=== PATIENT | female | born 1985 | race Caucasian/White ===

== ENCOUNTER 2019-07-18 17:42 | Emergency (ER) | payer BC, SELFPAY ==
--- NOTE | 2019-07-18 18:00 | ED.FEMALEGU ---
HPI - Female Genitourinary General Chief complaint: Urogenital-Female Stated complaint: UTI Time Seen by Provider: 07/18/19 18:01 Source: patient Mode of arrival: ambulatory Limitations: no limitations History of Present Illness HPI Narrative: Shavonne Shay is a 34 yo female with pressure and difficulty urinating starting at 11 A. Hx of uti Related Data Allergies Allergy/AdvReac Type Severity Reaction Status Date / Time Sulfa (Sulfonamide Allergy Hives Verified 07/18/19 18:02 Antibiotics) witch liborio Allergy Anaphylaxis Verified 07/18/19 18:02 Review of Systems Review of Systems: Narrative: CONSTITUTIONAL: Denies fever, chills, sweats. EYES: Denies visual changes, redness, discharge. ENT: Denies rhinorrhea, congestion, sore throat, otalgia. CARDIOVASCULAR: Denies chest pain, palpitations, edema. RESPIRATORY: Denies dyspnea, wheezing, cough GASTROINTESTINAL: Denies abdominal pain, nausea, vomiting, diarrhea. GENITOURINARY: has dysuria, hematuria, no abnormal discharge SKIN: Denies rash or itching. NEUROLOGIC: Denies numbness, or focal weakness. PSYCHIATRIC: Denies anxiety or depression. [facility] Social History Social History (Updated 07/18/19 @ 18:02 by Sandy Anderson CNP) Smoking status: Never smoker Alcohol intake: current Comments By at time of signature, I agree with nursing past medical, surgical, social and family history. There is no relevant family history pertinent to the presenting complaint. Exam Narrative: Exam Narrative: GENERAL: This is a well-nourished, well-developed patient, in mild distress. HEAD: normocephalic, atraumatic. EYES: Sclera clear/white. Vision is grossly intact. EARS: External ears normal, . Hearing grossly intact. NOSE: External nose normal with no obvious nasal discharge, nares without redness, no rhinorrhea. THROAT: Mucous membranes moist, NECK: Neck supple, CARDIOVASCULAR: Regular rate and rhythm without murmurs, gallops, or rubs. RESPIRATORY: Clear to auscultation. Breath sounds equal bilaterally. No wheezes, rales, or rhonchi. GASTROINTESTINAL: Abdomen soft, mildly-tender, SKIN: warm, intact with no suspicious lesions or rash, good texture and turgor. NEURO: awake, alert, and oriented to person, place and time. There were no obvious focal neurologic abnormalities. Steady gait EXTREMITIES: Normal range of motion. . Course Course Emergency Course: UA: Positive for leukocytes (3+), 3+ blood, tr ketones Started on Keflex and Diflucan Vital Signs Vital signs: Vital Signs Temperature 98.4 F 07/18/19 18:02 Pulse Rate 100 07/18/19 18:02 Respiratory Rate 20 07/18/19 18:02 Blood Pressure 122/75 07/18/19 18:02 Pulse Oximetry 100 07/18/19 18:02 Temperature 98.4 F 07/18/19 18:02 Pulse Rate 100 07/18/19 18:02 Respiratory Rate 20 07/18/19 18:02 Blood Pressure 122/75 07/18/19 18:02 Pulse Oximetry 100 07/18/19 18:02 MDM - Female Genitourinary Differential Diagnosis Differential diagnosis: Likely urinary tract infection, cystitis and other Lab Data Labs: Urine Glucose Negative Reference Range: Negative Urine Bilirubin 2+ Reference Range: Negative Urine Ketone Trace Reference Range: Negative Urine Specific [place] 1.020 Reference Range:1.001-1.035 Urine Blood 3+ Reference Range: Negative * * Urine pH 5.5 Reference Range: 5.0-9.0 Urine Protein 3+ Reference Range: Negative Urine Urobilinogen 1.0 Reference Range: 0.2-1.0 Urine Nitrate Negative Reference Range: Negative Urine Leukocyte 3+ Reference Range: Negative Urine Color Red Reference Range: Yellow Urine Characteristics
[2019-07-18 18:02] VITALS: BP 122/75; PULSE 100; RESP 20; TEMP 36.9; O2SAT 100
== END 2019-07-18 18:15 | disposition home or self-care (01) ==
PROVIDERS: Emergency Provider Nurse Practitioner
DX: N30.01 Acute cystitis with hematuria (principal)
CPT/HCPCS: 81003; 87077; 87086; 87088; 87186; 99213; G0463

== ENCOUNTER 2020-10-30 06:26 | Emergency (ER) | payer OTHER, BC, SELFPAY ==
[2020-10-30] VITALS (12 sets, daily range): BP systolic 106–136; BP diastolic 70–106; PULSE 71–104; RESP 12–21; TEMP 36.6; O2SAT 98–100
[2020-10-30 06:58] LABS: Basophils Percent Auto 0.3 % (0.2-1.2); Eosinophils Absolute Auto 0.1 K/mm3 (0-0.3); Eosinophils Percent Auto 0.8 % (0-4.4); Hematocrit 35.4 % (37.0-47.0); Hemoglobin 12.3 g/dL (12.0-15.0); Immature Granulocyte Absolute 0.07 K/mm3 (0.00-0.031); Immature Granulocyte Percent A 0.7 % (0-0.5); Lymphocytes Absolute Auto 1.86 K/mm3 (0.9-3.2); Lymphocytes Percent Auto 17.3 % (18.3-44.2); Mean Corpuscular HGB Conc 34.7 g/dl (32-36); Mean Corpuscular Hemoglobin 31.5 pg (26-34); Mean Corpuscular Volume 90.8 fl (80-100); Mean Platelet Volume 10.3 fl (7.4-10.4); Monocytes Percent Auto 8.8 % (2.6-8.5); Neutrophils Absolute Auto 7.8 K/mm3 (1.3-6.7); Neutrophils Percent Auto 72.1 % (45.5-73.1); Platelet Count Result 263 k/mm3 (150-375); Red Cell Distribution Width 11.7 % (11.5-14.5); White Blood Count 10.8 K/mm3 (4.5-10.0)
[2020-10-30 07:08] LABS: Alanine Aminotransferase 14 U/L (4-35); Albumin Level 3.4 g/dL (3.5-5.1); Alkaline Phosphatase 165 U/L (38-126); Anion Gap 6 mmol/L (8-16); Aspartate Amino Transferase 23 U/L (14-36); Bilirubin,Total 0.3 mg/dL (0.2-1.3); Blood Urea Nitrogen 12 mg/dL (7-17); Calcium 9.1 mg/dL (8.4-10.2); Carbon Dioxide 21 mmol/L (22-30); Chloride 109 mmol/L (98-107); Estimated CRCL calculation 103 ml/min; Estimated Glomerular Filt Rate > 60; Glucose 79 mg/dL (65-105); Lipase 156 U/L (23-300); Potassium 3.8 mmol/L (3.4-5.0); Sodium 136 mmol/L (137-145)
--- NOTE | 2020-10-30 07:47 | ED.NAVMDI ---
HPI - Nausea/Vomiting/Diarrhea General Chief complaint: Nausea/Vomiting/Diarrhea Stated complaint: 35weeks preg-N/V Time Seen by Provider: 10/30/20 07:45 Source: patient, family and RN notes reviewed Mode of arrival: ambulatory Limitations: no limitations History of Present Illness HPI Narrative: Patient is 35 years old white female 35 weeks presents with vomiting started 7 hours prior to arrival to the emergency room. Patient reports a history of bad hyperemesis gravidarum during all her which resolved almost 1 month ago, started 7 hours prior to arrival to the emergency room. Patient denies any fever, chills, abdominal pain, urinary symptoms, diarrhea. Patient is a 1, para 0, 0 Related Data Home Medications Medication Instructions Recorded Confirmed ondansetron HCl 10/30/20 Allergies Allergy/AdvReac Type Severity Reaction Status Date / Time Sulfa (Sulfonamide Allergy Hives Verified 10/30/20 06:41 Antibiotics) witch liborio Allergy Anaphylaxis Verified 10/30/20 06:41 Review of Systems Review of Systems: Narrative: CONSTITUTIONAL: Denies fever, chills, or sweats. EYES: Denies visual changes, redness, or discharge. ENT: Denies rhinorrhea, congestion, sore throat, or otalgia. CARDIOVASCULAR: Denies chest pain, palpitations, or edema. RESPIRATORY: Denies cough or dyspnea. GASTROINTESTINAL: Denies abdominal pain, nausea, vomiting, or diarrhea. GENITOURINARY: Denies dysuria or hematuria. SKIN: Denies rash or itching. MUSCULOSKELETAL: Denies back pain, joint pain, or myalgia. NEUROLOGIC: Denies headache, numbness, or weakness. PSYCHIATRIC: Denies anxiety or depression. [facility] Social History Social History Smoking status: Never smoker Alcohol intake: current Exam Narrative: Exam Narrative: General appearance: Well-developed, well-nourished Skin: Normal color Head: Normocephalic, nontraumatic Eyes: Clear conjunctiva ENT: Oropharynx normal, ears normal, nose normal Neck: Supple, nontender Chest and respiratory: Airway patent, no respiratory distress, no accessory muscle use Heart: Regular rate/rhythm Abdomen: Soft, nontender, no organomegaly, quiet bowel sounds Vascular: Normal peripheral pulses, normal capillary refill. Musculoskeletal: Normal range of motion, nontender back Neurologic: Alert and oriented ?3, [employer] is normal as tested, no gross motor deficit Course Course Emergency Course: Improving Vital Signs Vital signs: Vital Signs Temperature 36.6 C 10/30/20 06:36 Pulse Rate 91 10/30/20 06:36 Respiratory Rate 19 10/30/20 06:36 Blood Pressure 136/93 H 10/30/20 06:36 Pulse Oximetry 100 10/30/20 06:36 Temperature 36.6 C 10/30/20 06:36 Pulse Rate 86 10/30/20 07:45 Respiratory Rate 15 10/30/20 07:45 Blood Pressure 136/86 10/30/20 07:45 Pulse Oximetry 100 10/30/20 07:45 MDM - Nausea/Vomiting/Diarrhea MDM Narrative Medical decision making narrative: Hyperemesis gravidarum, urinary tract infection, electrolyte imbalance are my concern. Labs, UA, IV fluid, IV Zofran ordered. Further plan to follow Differential Diagnosis Differential diagnosis: Likely gastroenteritis, dehydration and other (Hyperemesis gravidarum) Lab Data Result diagrams: 10/30/20 06:51 10/30/20 06:51 Labs: Lab Results 10/30/20 10/30/20 10/30/20 Range/Units 06:51 06:51 08:57 WBC 10.8 H (4.5-10.0) K/mm3 RBC 3.90 L (4.2-5.4) M/mm3 Hgb 12.3 (12.0-15.0) g/dL Hct 35.4 L (37.0-47.0) % MCV 90.8 (80-100) fl MCH 31.5 (26-34) pg MCHC 34.7 (32-36) g/dl RDW 11.7 (11.5
[2020-10-30] MEDS: ONDANSETRON INJ 4 MG/2 ML VIAL 8 MG IV PUSH (07:52)
[2020-10-30] MEDS: SODIUM CHLORIDE 0.9% IV 1,000 ML 999 ML IV CONT ×2 (07:52)
[2020-10-30 09:12] LABS: Add Urine Microscopic? YES; Appearance Urine Cloudy (Clear); Bacteria Urine 4+ /hpf; Bilirubin Urine Negative (Negative); Blood Urine Negative (Negative); Color Urine Yellow (Yellow); Glucose Urine UA Negative (Negative); Ketones Urine Negative (Negative); Leukocyte Esterase Ur Negative LEU/UL (Negative); Mucus Urine Rare /lpf; Nitrate Urine Negative (Negative); Protein Urine Negative (Negative); RBC Urine 0-2 /hpf (0-2); Specific Grav Ur 1.012 (1.001-1.035); Squamous Epithelial Cell Urine Many /hpf (Few); Urobilinogen Urine Negative mg/dL (<2.0)
[2020-10-30] MEDS: ACETAMINOPHEN 325 MG TABLET 650 MG PO (11:10)
== END 2020-10-30 11:20 | disposition home or self-care (01) ==
PROVIDERS: Emergency Provider Emergency Medicine
DX: O21.0 Mild hyperemesis gravidarum (principal); Z3A.35 35 weeks gestation of pregnancy
CPT/HCPCS: 36415; 80053; 81001; 81025; 83690; 85025; 96361; 96374; 99284; A9270; J2405; J7030

== ENCOUNTER 2020-11-05 11:08 | Outpatient (CLI) | payer OTHER, BC, SELFPAY ==
[2020-11-05 11:31] VITALS: BP 144/90; PULSE 102
[2020-11-05 11:46] VITALS: BP 135/91; PULSE 104
[2020-11-05 11:48] VITALS: BP 144/90; PULSE 102
[2020-11-05 11:51] LABS: Basophils Percent Auto 0.4 % (0.2-1.2); Eosinophils Percent Auto 0.4 % (0-4.4); Hematocrit 35.5 % (37.0-47.0); Hemoglobin 12.1 g/dL (12.0-15.0); Immature Granulocyte Absolute 0.05 K/mm3 (0.00-0.031); Immature Granulocyte Percent A 0.4 % (0-0.5); Lymphocytes Absolute Auto 1.74 K/mm3 (0.9-3.2); Lymphocytes Percent Auto 15.5 % (18.3-44.2); Mean Corpuscular HGB Conc 34.1 g/dl (32-36); Mean Corpuscular Hemoglobin 31.3 pg (26-34); Mean Corpuscular Volume 91.7 fl (80-100); Mean Platelet Volume 10.2 fl (7.4-10.4); Monocytes Absolute Auto 1.1 K/mm3 (0.1-0.6); Monocytes Percent Auto 9.3 % (2.6-8.5); Neutrophils Absolute Auto 8.3 K/mm3 (1.3-6.7); Platelet Count Result 287 k/mm3 (150-375); Red Blood Count 3.87 M/mm3 (4.2-5.4); Red Cell Distribution Width 11.9 % (11.5-14.5); White Blood Count 11.3 K/mm3 (4.5-10.0)
[2020-11-05 11:58] LABS: Alanine Aminotransferase 16 U/L (4-35); Albumin Level 3.7 g/dL (3.5-5.1); Alkaline Phosphatase 196 U/L (38-126); Anion Gap 5 mmol/L (8-16); Aspartate Amino Transferase 26 U/L (14-36); Bilirubin,Total 0.3 mg/dL (0.2-1.3); Blood Urea Nitrogen 12 mg/dL (7-17); Calcium 9.3 mg/dL (8.4-10.2); Carbon Dioxide 21 mmol/L (22-30); Chloride 107 mmol/L (98-107); Estimated Glomerular Filt Rate > 60; Glucose 83 mg/dL (65-105); Sodium 133 mmol/L (137-145); Uric Acid 5.7 mg/dL (2.5-7.5)
[2020-11-05 11:59] LABS: Add Urine Microscopic? YES; Appearance Urine Cloudy (Clear); Bacteria Urine Trace /hpf; Bilirubin Urine Negative (Negative); Blood Urine Negative (Negative); Color Urine Yellow (Yellow); Glucose Urine UA Negative (Negative); Ketones Urine Negative (Negative); Leukocyte Esterase Ur Negative LEU/UL (NEGATIVE); Mucus Urine Rare /lpf; Nitrate Urine Negative (Negative); Protein Urine Negative (Negative); RBC Urine 0-2 /hpf (0-2); Specific Grav Ur 1.023 (1.001-1.035); Squamous Epithelial Cell Urine Occasional /hpf (Few); Urobilinogen Urine Negative mg/dL (<2.0); WBC Urine 0-3 /hpf (0-3)
[2020-11-05 12:00] VITALS: BP 131/89; BP 144/90; PULSE 102; PULSE 94
[2020-11-05 12:05] LABS: Creatinine Urine 124.6 mg/dL; Total Protein Urine Random 12 mg/dL
[2020-11-05 12:15] VITALS: BP 130/84; PULSE 99
--- NOTE | 2020-11-05 14:39 | PC.NURSE ---
1213- called,read lab results and bp's. Order received to discharge pt home.
--- NOTE | 2020-11-05 14:40 | PC.NURSE ---
1108-Pt was sent down from 's office for elevated bp's in office. [facility] labs and NST ordered.
== END 2020-11-05 12:15 | disposition home or self-care (01) ==
LOC: ANHOBOP 11:16 → ANHLDR 11-10 07:01
PROVIDERS: Visit Provider Obstetrics & Gynecology
DX: O13.9 Gestational [pregnancy-induced] hypertension without significant proteinuria, unspecified trimester (principal); Z3A.00 Weeks of gestation of pregnancy not specified
CPT/HCPCS: 36415; 59025; 80053; 81001; 82570; 84156; 84550; 85025; 87086; 87088; 99199

== ENCOUNTER 2020-11-07 20:59 | Outpatient (CLI) | payer BC, OTHER, SELFPAY ==
[2020-11-07] VITALS (7 sets, daily range): BP systolic 136–153; BP diastolic 88–101; PULSE 93–101; RESP 18; TEMP 36.7
[2020-11-07 22:13] LABS: Basophils Percent Auto 0.2 % (0.2-1.2); Eosinophils Percent Auto 0.3 % (0-4.4); Hematocrit 33.4 % (37.0-47.0); Hemoglobin 11.6 g/dL (12.0-15.0); Immature Granulocyte Absolute 0.08 K/mm3 (0.00-0.031); Immature Granulocyte Percent A 0.6 % (0-0.5); Lymphocytes Absolute Auto 2.59 K/mm3 (0.9-3.2); Lymphocytes Percent Auto 19.8 % (18.3-44.2); Mean Corpuscular HGB Conc 34.7 g/dl (32-36); Mean Corpuscular Hemoglobin 31.9 pg (26-34); Mean Corpuscular Volume 91.8 fl (80-100); Mean Platelet Volume 10.4 fl (7.4-10.4); Monocytes Absolute Auto 0.9 K/mm3 (0.1-0.6); Neutrophils Absolute Auto 9.4 K/mm3 (1.3-6.7); Neutrophils Percent Auto 72.1 % (45.5-73.1); Platelet Count Result 281 k/mm3 (150-375); Red Blood Count 3.64 M/mm3 (4.2-5.4); Red Cell Distribution Width 11.9 % (11.5-14.5); White Blood Count 13.1 K/mm3 (4.5-10.0)
[2020-11-07 22:15] LABS: Add Urine Microscopic? NO; Appearance Urine Clear (Clear); Bilirubin Urine Negative (Negative); Blood Urine Negative (Negative); Color Urine Yellow (Yellow); Glucose Urine UA Negative (Negative); Ketones Urine Negative (Negative); Leukocyte Esterase Ur Negative LEU/UL (NEGATIVE); Nitrate Urine Negative (Negative); Protein Urine Negative (Negative); Specific Grav Ur 1.019 (1.001-1.035); Urobilinogen Urine Negative mg/dL (<2.0)
[2020-11-07 22:23] LABS: Alanine Aminotransferase 14 U/L (4-35); Albumin Level 3.6 g/dL (3.5-5.1); Alkaline Phosphatase 201 U/L (38-126); Anion Gap 8 mmol/L (8-16); Aspartate Amino Transferase 22 U/L (14-36); Bilirubin,Total 0.2 mg/dL (0.2-1.3); Blood Urea Nitrogen 13 mg/dL (7-17); Calcium 9.5 mg/dL (8.4-10.2); Carbon Dioxide 22 mmol/L (22-30); Chloride 104 mmol/L (98-107); Estimated Glomerular Filt Rate > 60; Glucose 118 mg/dL (65-105); Potassium 3.5 mmol/L (3.4-5.0); Sodium 134 mmol/L (137-145); Uric Acid 5.6 mg/dL (2.5-7.5)
[2020-11-07 22:30] LABS: Creatinine Urine 97.5 mg/dL; Total Protein Urine Random 16 mg/dL; Ur Ttl Prot Creatinine Ratio 0.16 mg/mg (0-0.20)
--- NOTE | 2020-11-08 06:53 | PM.OBTRLD ---
OB - Triage/Final Diagnosis Visit Information Date of evaluation: 11/07/20 Reason for evaluation: other (htn) Comments/Additional reasons for admission: I have assessed the risk for this patient, Mandy Shay, and determined that she would benefit from observation care. Evaluation Laboratory results: Laboratory Tests 11/07/20 11/07/20 11/07/20 22:01 22:01 22:01 WBC 13.1 H RBC 3.64 L Hgb 11.6 L Hct 33.4 L MCV 91.8 MCH 31.9 MCHC 34.7 RDW 11.9 Plt Count 281 MPV 10.4 Immature Gran % (Auto) 0.6 H Neut % (Auto) 72.1 Lymph % (Auto) 19.8 [place] % (Auto) 7.0 Eos % (Auto) 0.3 Baso % (Auto) 0.2 Lymph # (Auto) 2.59 [place] # (Auto) 0.9 H Eos # (Auto) 0.0 Baso # (Auto) 0.0 Abs Immat Gran (auto) 0.08 H Absolute Neuts (auto) 9.4 H Absolute Nucleated RBC 0.0 Nucleated RBC % 0.0 Sodium Potassium Chloride Carbon Dioxide Anion Gap BUN Creatinine Estim Creat Clear Calc Estimated GFR Glucose Uric Acid Calcium Total Bilirubin AST ALT Alkaline Phosphatase Total Protein Albumin Urine Color Yellow Urine Appearance Clear Urine pH 6.0 Ur Specific [place] 1.019 Urine Protein Negative Urine Glucose (UA) Negative Urine Ketones Negative Ur Blood (Man) Negative Urine Nitrate Negative Urine Bilirubin Negative Urine Urobilinogen Negative Ur Leukocyte Esterase Negative U Random Total Protein 16 Urine Creatinine 97.5 Protein/Creat Ratio 2 0.16 11/07/20 22:01 WBC RBC Hgb Hct MCV MCH MCHC RDW Plt Count MPV Immature Gran % (Auto) Neut % (Auto) Lymph % (Auto) [place] % (Auto) Eos % (Auto) Baso % (Auto) Lymph # (Auto) [place] # (Auto) Eos # (Auto) Baso # (Auto) Abs Immat Gran (auto) Absolute Neuts (auto) Absolute Nucleated RBC Nucleated RBC % Sodium 134 L Potassium 3.5 Chloride 104 Carbon Dioxide 22 Anion Gap 8 BUN 13 Creatinine 0.70 Estim Creat Clear Calc Not Reportable Estimated GFR > 60 Glucose 118 H Uric Acid 5.6 Calcium 9.5 Total Bilirubin 0.2 AST 22 ALT 14 Alkaline Phosphatase 201 H Total Protein 7.0 Albumin 3.6 Urine Color Urine Appearance Urine pH Ur Specific [place] Urine Protein Urine Glucose (UA) Urine Ketones Ur Blood (Man) Urine Nitrate Urine Bilirubin Urine Urobilinogen Ur Leukocyte Esterase U Random Total Protein Urine Creatinine Protein/Creat Ratio 2 Vital signs: Vital Signs - 24 hr 11/07/20 21:31 11/07/20 21:32 11/07/20 21:45 Temperature 98.0 F Pulse Rate 93 99 Respiratory Rate 18 Blood Pressure 150/94 H 147/92 H 11/07/20 22:00 11/07/20 22:15 11/07/20 22:30 Temperature Pulse Rate 94 96 101 H Respiratory Rate Blood Pressure 141/101 H 153/88 H 140/97 H 11/07/20 23:00 Temperature Pulse Rate 93 Respiratory Rate Blood Pressure 136/96 H
== END 2020-11-07 23:08 | disposition home or self-care (01) ==
LOC: ANHOBOP 21:09 → ANHOBPP 21:10
PROVIDERS: Obstetrics & Gynecology; Visit Provider Obstetrics & Gynecology
DX: O13.9 Gestational [pregnancy-induced] hypertension without significant proteinuria, unspecified trimester (principal); Z3A.00 Weeks of gestation of pregnancy not specified
CPT/HCPCS: 36415; 59025; 80053; 81003; 82570; 84156; 84550; 85025; 87086; 99199

== ENCOUNTER 2020-11-14 17:52 | Outpatient (CLI) | payer BC, OTHER, SELFPAY ==
[2020-11-14] VITALS (16 sets, daily range): BP systolic 120–172; BP diastolic 76–122; PULSE 94–114; TEMP 36.8; BMI 36.3
[2020-11-14 20:02] LABS: Basophils Absolute Auto 0.1 K/mm3 (0.0-0.1); Basophils Percent Auto 0.4 % (0.2-1.2); Eosinophils Percent Auto 0.3 % (0-4.4); Hematocrit 39.2 % (37.0-47.0); Hemoglobin 13.2 g/dL (12.0-15.0); Immature Granulocyte Absolute 0.09 K/mm3 (0.00-0.031); Immature Granulocyte Percent A 0.7 % (0-0.5); Lymphocytes Absolute Auto 2.37 K/mm3 (0.9-3.2); Lymphocytes Percent Auto 17.2 % (18.3-44.2); Mean Corpuscular HGB Conc 33.7 g/dl (32-36); Mean Corpuscular Hemoglobin 31.1 pg (26-34); Mean Corpuscular Volume 92.5 fl (80-100); Mean Platelet Volume 11.7 fl (7.4-10.4); Monocytes Absolute Auto 1.1 K/mm3 (0.1-0.6); Monocytes Percent Auto 8.3 % (2.6-8.5); Neutrophils Absolute Auto 10.1 K/mm3 (1.3-6.7); Neutrophils Percent Auto 73.1 % (45.5-73.1); Platelet Count Result 240 k/mm3 (150-375); Red Blood Count 4.24 M/mm3 (4.2-5.4); Red Cell Distribution Width 11.9 % (11.5-14.5); White Blood Count 13.8 K/mm3 (4.5-10.0)
[2020-11-14 20:03] LABS: Add Urine Microscopic? NO; Appearance Urine Clear (Clear); Bilirubin Urine Negative (Negative); Blood Urine Negative (Negative); Color Urine Yellow (Yellow); Glucose Urine UA Negative (Negative); Ketones Urine Negative (Negative); Leukocyte Esterase Ur Negative LEU/UL (NEGATIVE); Nitrate Urine Negative (Negative); Protein Urine Negative (Negative); Specific Grav Ur 1.013 (1.001-1.035); Urobilinogen Urine Negative mg/dL (<2.0)
[2020-11-14 20:09] LABS: Creatinine Urine 65.6 mg/dL; Total Protein Urine Random 12 mg/dL; Ur Ttl Prot Creatinine Ratio 0.18 mg/mg (0-0.20)
[2020-11-14 20:46] LABS: Alanine Aminotransferase 14 U/L (4-35); Albumin Level 3.5 g/dL (3.5-5.1); Alkaline Phosphatase 228 U/L (38-126); Anion Gap 6 mmol/L (8-16); Aspartate Amino Transferase 22 U/L (14-36); Bilirubin,Total 0.4 mg/dL (0.2-1.3); Blood Urea Nitrogen 11 mg/dL (7-17); Calcium 9.4 mg/dL (8.4-10.2); Carbon Dioxide 23 mmol/L (22-30); Chloride 105 mmol/L (98-107); Estimated Glomerular Filt Rate > 60; Glucose 77 mg/dL (65-110); Potassium 3.7 mmol/L (3.4-5.0); Sodium 134 mmol/L (137-145); Uric Acid 5.3 mg/dL (2.5-7.5)
--- NOTE | 2020-11-14 22:44 | OBADM ---
This patient, Mandy Shay, admitted to the OB room [facility] Post [facility] for observation. Patient/family oriented to hospital policies and general routines including ID bracelet, bed and alarms, visiting hours, pain management, procedures, bathroom and other care routines, personal items, smoking policy, room service/diet, and visiting hours. Patient/Family are encouraged to report perceived risks to care and to ask questions if they do not understand what they are told or what they should do.
== END 2020-11-14 22:45 | disposition home or self-care (01) ==
LOC: ANHOBOP 18:00 → ANHOBPP 22:32
PROVIDERS: Visit Provider Obstetrics & Gynecology
DX: O13.9 Gestational [pregnancy-induced] hypertension without significant proteinuria, unspecified trimester (principal); Z3A.00 Weeks of gestation of pregnancy not specified
CPT/HCPCS: 36415; 80053; 81003; 82570; 84156; 84550; 85025; 87086; 87088; 99199

== ENCOUNTER 2020-11-17 15:56 | Inpatient (IN) | payer BC, OTHER, SELFPAY ==
[2020-11-02 15:25] VITALS: BMI 35.1
[2020-11-17] VITALS (16 sets, daily range): BP systolic 122–156; BP diastolic 75–102; PULSE 88–105; TEMP 36.9
[2020-11-17 18:00] LABS: Basophils Percent Auto 0.3 % (0.2-1.2); Eosinophils Absolute Auto 0.1 K/mm3 (0-0.3); Eosinophils Percent Auto 0.7 % (0-4.4); Hematocrit 35.5 % (37.0-47.0); Hemoglobin 12.3 g/dL (12.0-15.0); Immature Granulocyte Absolute 0.05 K/mm3 (0.00-0.031); Immature Granulocyte Percent A 0.4 % (0-0.5); Lymphocytes Absolute Auto 2.03 K/mm3 (0.9-3.2); Lymphocytes Percent Auto 16.6 % (18.3-44.2); Mean Corpuscular HGB Conc 34.6 g/dl (32-36); Mean Corpuscular Hemoglobin 31.2 pg (26-34); Mean Corpuscular Volume 90.1 fl (80-100); Mean Platelet Volume 11.7 fl (7.4-10.4); Monocytes Percent Auto 8.2 % (2.6-8.5); Neutrophils Absolute Auto 9.1 K/mm3 (1.3-6.7); Neutrophils Percent Auto 73.8 % (45.5-73.1); Platelet Count Result 267 k/mm3 (150-375); Red Blood Count 3.94 M/mm3 (4.2-5.4); Red Cell Distribution Width 11.8 % (11.5-14.5); White Blood Count 12.3 K/mm3 (4.5-10.0)
[2020-11-17 18:09] LABS: Alanine Aminotransferase 16 U/L (4-35); Albumin Level 3.8 g/dL (3.5-5.1); Alkaline Phosphatase 227 U/L (38-126); Anion Gap 7 mmol/L (8-16); Aspartate Amino Transferase 30 U/L (14-36); Bilirubin,Total 0.4 mg/dL (0.2-1.3); Blood Urea Nitrogen 15 mg/dL (7-17); Calcium 9.9 mg/dL (8.4-10.2); Carbon Dioxide 24 mmol/L (22-30); Chloride 105 mmol/L (98-107); Estimated CRCL calculation 103 ml/min; Estimated Glomerular Filt Rate > 60; Glucose 88 mg/dL (65-110); Potassium 3.8 mmol/L (3.4-5.0); Sodium 136 mmol/L (137-145); Uric Acid 6.1 mg/dL (2.5-7.5)
[2020-11-17] MEDS: DINOPROSTONE 10 MG VAG INSERT VAGINAL (18:40)
--- NOTE | 2020-11-17 20:53 | LDADM ---
This patient, Mandy Shay, was admitted to Labor/Delivery/Recovery 108 on 11/17/20 at 15:56. Plans for labor, pain management and were discussed with patient. Patient/family oriented to hospital policies and general routines including ID bracelet, bed and alarms, visiting hours, pain management, procedures, bathroom and other care routines, personal items, smoking policy, room service/diet and guest tray routines, security routines, and visiting hours. Patient/Family are encouraged to report perceived risks to care and to ask questions if they do not understand what they are told or what they should do. See OBIX for further documentation.
[2020-11-17] MEDS: ZOLPIDEM TARTRATE (*CRX) 5 MG TABLET PO (21:10)
[2020-11-18] VITALS (111 sets, daily range): BP systolic 101–164; BP diastolic 58–107; PULSE 33–144; RESP 16; TEMP 36.8–38.3; O2SAT 76–100
[2020-11-18] MEDS: FAMOTIDINE 20 MG/2 ML VIAL IV PUSH (00:19)
[2020-11-18] MEDS: ONDANSETRON INJ 4 MG/2 ML VIAL IV PUSH (00:30)
[2020-11-18] MEDS: fentaNYL CITRATE INJ (*CRX) 100 MCG/2 ML VIAL 50 MCG IV PUSH ×2 (05:30→07:02)
[2020-11-18] MEDS: OXYTOCIN 30 UNITS/NS 500 ML 30 UNITS/500 ML BAG 6 UNITS IV CONT (06:36)
[2020-11-18] MEDS: LACTATED RINGERS 1,000 ML 125 ML IV CONT ×3 (06:36→18:50)
--- NOTE | 2020-11-18 06:50 | WPDOBADMIT ---
Obstetrics - Admit Note Admission Note: record reviewed. Additions to the history and/or subsequent changes in the physical findings follow. 35 y/o G1 at 38 weeks with gestational HTN, worsening bp control. No headache, no abd pain, no visual field change. Labs OK. GBS neg. Had Cervidil overnight, has been withdrawn. AVSS (bp 140-150/80-90) NST reactive TOCO: irregular contractions ABD soft, nontender, gravid, vertex EXT nontender Cervix 2/50/-2. AROM with clear fluid. A: IUP at 38 weeks with gestational HTN, here for induction of labor. S/p Cervidil, now receiving oxytocin. P: Continue oxytocin. Anticipate .
[2020-11-18 08:17] LABS: Rapid Plasma Reagin Non-Reactive (NonReactive)
--- NOTE | 2020-11-18 10:28 | WPDANESEPPF ---
Anes - Initial Pre Proc Eval Procedure: labor epidural Date/Time: 11/18/20 10:28 Surgeon: Gus Heaton MD Pre Op Diagnosis: labor pain Pre Op Diagnosis: IOL Patient Data Age: 35 Gender: F Height: 1.6 m Weight: 90 kg Last Vital Signs Temp 37.2 C 11/18/20 09:45 Pulse 101 H 11/18/20 10:00 BP 104/60 11/18/20 10:00 Pulse Ox 98 11/18/20 10:24 Allergies Allergy/AdvReac Type Severity Reaction Status Date / Time witch liborio Allergy Severe Anaphylaxis Verified 11/17/20 17:12 Sulfa (Sulfonamide Allergy Hives Verified 10/30/20 06:41 Antibiotics) Home Medications Medication Instructions Recorded Confirmed Type vit no.[id number] 1 tablet DAILY 11/07/20 11/17/20 History [Classic ] Laboratory Tests 11/17/20 11/17/20 11/17/20 17:41 17:41 17:41 WBC 12.3 K/mm3 H K/mm3 (4.5-10.0) RBC 3.94 M/mm3 L M/mm3 (4.2-5.4) Hgb 12.3 g/dL g/dL (12.0-15.0) Hct 35.5 % L % (37.0-47.0) MCV 90.1 fl fl (80-100) MCH 31.2 pg pg (26-34) MCHC 34.6 g/dl g/dl (32-36) RDW 11.8 % % (11.5-14.5) Plt Count 267 k/mm3 k/mm3 (150-375) MPV 11.7 fl H fl (7.4-10.4) Immature Gran % (Auto) 0.4 % % (0-0.5) Neut % (Auto) 73.8 % H % (45.5-73.1) Lymph % (Auto) 16.6 % L % (18.3-44.2) [place] % (Auto) 8.2 % % (2.6-8.5) Eos % (Auto) 0.7 % % (0-4.4) Baso % (Auto) 0.3 % % (0.2-1.2) Lymph # (Auto) 2.03 K/mm3 K/mm3 (0.9-3.2) [place] # (Auto) 1.0 K/mm3 H K/mm3 (0.1-0.6) Eos # (Auto) 0.1 K/mm3 K/mm3 (0-0.3) Baso # (Auto) 0.0 K/mm3 K/mm3 (0.0-0.1) Abs Immat Gran (auto) 0.05 K/mm3 H K/mm3 (0.00-0.031) Absolute Neuts (auto) 9.1 K/mm3 H K/mm3 (1.3-6.7) Absolute Nucleated RBC 0.0 K/mm3 K/mm3 (0.0-0.012) Nucleated RBC % 0.0 % % (0.0-0.2) Sodium 136 mmol/L L mmol/L (137-145) Potassium 3.8 mmol/L mmol/L (3.4-5.0) Chloride 105 mmol/L mmol/L (98-107) Carbon Dioxide 24 mmol/L mmol/L (22-30) Anion Gap 7 mmol/L L mmol/L (8-16) BUN 15 mg/dL mg/dL (7-17) Creatinine 0.70 mg/dL mg/dL (0.7-1.0) Estim Creat Clear Calc 103 ml/min ml/min Estimated GFR > 60 (59 - ) Glucose 88 mg/dL mg/dL (65-110) Uric Acid 6.1 mg/dL mg/dL (2.5-7.5) Calcium 9.9 mg/dL mg/dL (8.4-10.2) Total Bilirubin 0.4 mg/dL mg/dL (0.2-1.3) AST 30 U/L U/L (14-36) ALT 16 U/L U/L (4-35) Alkaline Phosphatase 227 U/L H U/L (38-126) Total Protein 7.0 g/dL g/dL (6.3-8.2) Albumin 3.8 g/dL g/dL (3.5-5.1) RPR Non-reactive (NonReactive) Blood Type Antibody Screen 11/17/20 11/17/20 17:42 19:57 WBC RBC Hgb Hct MCV MCH MCHC RDW Plt Count MPV Immature Gran % (Auto) Neut % (Auto) Lymph % (Auto) [place] % (Auto) Eos % (Auto) Baso % (Auto) Lymph # (Auto) [place] # (Auto) Eos # (Auto) Baso # (Auto) Abs Immat Gran (auto) Absolute Neuts (auto) Absolute Nucleated RBC Nucleated RBC % Sodium Potassium Chloride Carbon Dioxide Anion Gap BUN Creatinine Estim Creat Clear Calc Estimated GFR Glucose Uric Acid Cancelled Calcium Total Bilirubin AST ALT Alkaline Phosphatase Total Protein Albumin RPR Blood Type B Positive Antibody Screen Negative Patient hx an
--- NOTE | 2020-11-18 13:30 | PM.OBPNLAB ---
Pain Control Date/time seen: 11/18/20 18:19 Comfortable with epidural. AVSS NST reactive TOCO: contractions every 2-4 min Cervix 9 cm per RN Continue oxytocin. Anticipate .
[2020-11-18] MEDS: SODIUM CHLORIDE 0.9% IV 300 ML 600 ML I-UTERINE (13:52)
[2020-11-18] MEDS: AMPICILLIN 2 GM/NS 100 ML 2 GM/100 ML BAG IVPB (16:16)
--- NOTE | 2020-11-18 18:10 | P.PCNOB_ITS ---
OB - Delivery Note Procedure Delivery date: 11/18/20 Procedure: Induction of labor with events: Induced HTN Intrapartal events: None Induction method: per pitocin protocol and per cervidil protocol Delivery augmentation: pitocin Delivery monitor: external FHT, external uterine and internal uterine Route of delivery: Laceration Description: Perineal - 2nd Degree Delivery repair: vicryl (3-0) Specimen: Yes (cord blood, placenta) Quantitative Blood Loss (ml): 95 Anesthesia type: Epidural Disposition: PACU Complications: None Narrative: 35 y/o G1 at 38 1/7 weeks gestation who presented to the hospital for induction of labor for gestational HTN with worsening bp control. Cervidil was placed overnight, withdrawn the next morning. Oxytocin was administered intravenously. Amniotomy was performed with return of clear fluid. She received an epidural for pain control. She developed a fever of 101F which was treated with Tylenol and ampicillin. Her labor progressed and her cervix dilated completely. She pushed with good effort and delivered the infant's head to the perineum. A loose nuchal cord was reduced, then the body delivered. Meconium-stained fluid was noted. The nose and mouth were bulb suctioned. After a delay, the cord was clamped and cut. The was handed off the field. Cord blood was collected. The placenta delivered spontaneously and was grossly normal in appearance. The usual 3 vessel cord was noted. A second degree midline perineal laceration was sustained. This was reapproximated using 3 0 Vicryl in the usual layered fashion. Excellent hemostasis resulted as did excellent reapproximation of the normal anatomy. Needle and instrument counts were correct. The patient was taken to recovery room in stable condition. The went to the nursery in stable condition. I was present and scrubbed for the entire delivery. [place] Baby Date of : 11/18/20 Time of : 17:33 Weeks of gestation at delivery: 38 gender: Female Weight (pounds): 5 Weight (ounces): 12 presentation: vertex position: Left Occiput Anterior Placenta delivery description: Spontaneous and Normal Configuration cord vessel description: 3 Vessels, Nuchal Cord and Delayed Cord Clamping score one minute: 8 score five minutes: 9
[2020-11-18] MEDS: OXYTOCIN 30 UNITS/NS 500 ML 30 UNITS/500 ML BAG 125 UNITS IV CONT (18:13)
--- NOTE | 2020-11-18 18:20 | PM.OBDSVD ---
DS: Admitting Diagnosis Admitting Diagnosis Admitting Diagnosis: IUP at 38 weeks Gestational hypertension DS: Discharge Diagnosis Discharge Diagnosis (1) (normal spontaneous vaginal delivery): Code(s): O80 - Encounter for full-term uncomplicated delivery Status: Acute (2) Gestational hypertension: Code(s): O13.9 - Gestational [-induced] hypertension without significant proteinuria, unspecified trimester Status: Acute OB - DS: Summary OB Procedures : None OB Procedures Intrapartum: Spontaneous Vag Delivery OB Procedures: : None DS: Data Data Completed and Pending Pending studies at discharge: Pending at discharge 11/18/20 17:37 Surgical [PTH] Routine Labs on day of discharge: Labs from last 24 hours 11/17/20 11/17/20 19:57 17:41 RPR Non-reactive Blood Type B Positive Antibody Screen Negative Discharge Plan Discharge Attending physician on discharge: Gus Heaton Consulting providers: Luis Alfredo Nguyễn Discharging Clinician: Gus Heaton Patient Disposition: Home, Self-Care Activity: pelvic rest Diet: regular Discharge Instructions: Call or return if temperature above 100.4? F, increased abdominal pain, increased vaginal bleeding or any new problems. Education: Mom and Baby Guide Given to: Mother Follow-Up: Call your delivering provider's office for an appointment to be seen in: Call for Blood pressure check in office on Monday. No f/u visit needed BREAST CARE: * Wear a snug supportive bra. * For engorgement discomfort: Breast Feeding: * Apply warm moist washcloths * Express milk as needed to relieve engorgement * Wear loose clothing Bottle Feeding: * May apply ice packs * For sore nipples: * Identify correct latch-on * Apply warm moist washcloths before and after nursing * Air dry nipples after nursing * May apply Lansinoh cream to nipples EPISIOTOMY/PERINEAL CARE: * Until bleeding stops, use your jose bottle after urinating * Change your pad frequently throughout the day * You may take sitz baths several times a day (fill your bathtub with warm water and soak for 20 minutes.) Do NOT bathe in the water * No tub baths until seen by your physician - You may shower ACTIVITY: * Rest as much as possible. * Do not exercise or lift anything heavier than your baby (such as laundry or other children.) * Avoid stairs or driving as much as possible. * Do not put anything into the vagina. No douching, tampons, or sexual activity until seen by physician. NOTIFY PHYSICIAN IF YOU HAVE ANY QUESTIONS OR IF ANY OF THE FOLLOWING SYMPTOMS OCCUR: * If your episiotomy becomes red, swollen, or more painful than what you have experienced in the hospital. * If your vaginal bleeding becomes foul smelling. * If your vaginal bleeding becomes more heavy than a period or if your bleeding changes from pink to bright red. However, you may pass an occasional walnut-sized clot once or twice for the first week . * If you experience a sharp, shooting pain in you calves. * If you discover a hard, reddened area on your breast or if you experience flu-like symptoms. DIET: * Eat regular, well-balanced meals. * Drink plenty of fluids daily. If , drink to thirst. Stand Alone Forms: General Discharge Information Follow-up/Referrals: Gus Heaton MD [Physician] - 6 Weeks Discharge Medications: New ibuprofen 600 mg tablet 600 mg PO Q6H PRN (Reason: cramps) Qty: 30 RF: 0 acetaminophen [Mapap (acetaminophen)] 325 mg Tablet 650 mg PO Q6H PRN (Reason: Mild Pain (1-3) Or Headache) Qty: 30 RF: 0 Continued Classic 28 mg iron- 800 mcg Tablet 1 tablet DAILY RF: 0 Date of admission: 11/17/20 15:56 Primary Care Provider: [place], Admitting Provider: [place]
[2020-11-18] MEDS: IBUPROFEN 600 MG TABLET PO (18:22)
[2020-11-18] MEDS: BENZOCAINE 20% AER SPR (*SP) 56 GM CAN 1 SPRAY TOPICAL (21:30)
[2020-11-19] VITALS (7 sets, daily range): BP systolic 112–131; BP diastolic 72–83; PULSE 64–82; RESP 14–18; TEMP 36.3–36.8; O2SAT 99–100
[2020-11-19] MEDS: IBUPROFEN 600 MG TABLET PO ×4 (00:10→21:39)
--- NOTE | 2020-11-19 00:10 | PC.NURSE ---
Pt up to bathroom and voided large amount. PeriCare instructions given/
[2020-11-19 04:57] LABS: Hematocrit 31.5 % (37.0-47.0); Hemoglobin 10.6 g/dL (12.0-15.0)
[2020-11-19] MEDS: MULTIVIT/MIN/PREN/FOL AC/IRON TABLET 1 TAB PO (09:19)
--- NOTE | 2020-11-19 11:15 | PC.NURSE ---
Consult with pt., mother reports infant has been sleepy and not latching. During the night had a low blood glucose and IV was started. Mother will attempt then bottle feed. Infant is able to freely thrust tongue past gum ridge and flange both lips. Skin is intact on both nipples, no redness and bruising noted. Reviewed feeding cues, frequencies, duration of feedings, feeding elimination flow sheet, and signs of adequate intake. Demonstrated stimulation techniques to wake infant for feeding. Assisted with to breast. Reviewed positioning/alignment in cross cradle, holding breast in ?U? hold and guided asymmetrical latch on. Discussed rational for each. Infant able to latch correctly. made no effort to suckle, a few flutter sucks noted within the 10 minutes feeding observed. Infant stimulated with no response of increased suckling. Reviewed signs of a correct latch, effective nursing and suck swallow ratio. was able to maintain latch without sucking noted. Reviewed attempting infant to breast provides mother with stimulation. Suggested to attempt each feeding then supplement. Discussed pumping to stimulate supply and offer any milk obtained as part of supplement. Mother is willing to pump.
--- NOTE | 2020-11-19 11:45 | PC.NURSE ---
Breast pump provided due to ineffective feeding. Instructions given on breast pump care and usage, pumping schedule, nipple care, and collection and storage of breast milk. Encouraged [id number], breast massage and manual expression to stimulate supply. Assessed patient for correct flange size, placement and draw. Patient verbalizes and demonstrates understanding of instructions.
[2020-11-19] MEDS: ACETAMINOPHEN 325 MG TABLET 650 MG PO ×2 (11:55→20:02)
--- NOTE | 2020-11-19 12:22 | P.PNOB_ITS ---
OB - PN: Subj Subjective Date/time seen: 11/19/20 12:22 Patient comments: no complaints, pain well controlled and tolerating diet [place] feeding status: exclusively breast feeding Narrative: patient doing well this AM. No complaints. Pain is well controlled. She reports minimal bleeding. She is ambulating and voiding without difficulty. She is tolerating PO. She denies N/V, fever, chills. OB - PN: Obj Data Labs CBC & Chem 7: 11/19/20 04:36 11/17/20 17:41 Labs: Laboratory Results - last 24 hr 11/19/20 04:36 Hgb 10.6 L Hct 31.5 L OB - PN A/P Plan day: 1 Plan: routine care Comments: patient doing well H/H stable continue routine care Time Spent With Patient Time: Total time spent is greater than 50% in coordination of care (as documented) at patient's floor/unit and/or counseling patient: Time with patient: less than 15 minutes Review of Systems Review of Systems: All systems reviewed & are unremarkable except as noted in HPI and below Exam Const: General: comfortable and no acute distress Resp: Effort & Inspection: normal respiratory effort Cardio: Rate: regular rate GI: GI Palp: Yes Soft to palpation and No Tenderness to palpation present (GI) Auscultation: normal bowel sounds Other: fundus firm and below umbilicus. Psych: Affect: normal affect
--- NOTE | 2020-11-19 15:46 | PC.NURSE ---
Patient transferred to post room # 285 per wheelchair. Support person present. Oriented to unit, room, information board, rooming in, admission packet and security measures. Patient verbalizes understanding.
[2020-11-19] MEDS: DOCUSATE SODIUM 100 MG CAPSULE PO (15:54)
[2020-11-20] MEDS: ACETAMINOPHEN 325 MG TABLET 650 MG PO (03:56)
[2020-11-20 08:00] VITALS: BP 136/86; PULSE 97; RESP 20; TEMP 36.7
--- NOTE | 2020-11-20 09:00 | PC.NURSE ---
Patient viewed the discharge video Mother & Baby Care, The First Two Weeks . Patient was given the opportunity and encouraged to ask questions. Patient verbalized understanding of information shared and has been given the mother/baby guide for home reference.
[2020-11-20] MEDS: MULTIVIT/MIN/PREN/FOL AC/IRON TABLET 1 TAB PO (09:03)
[2020-11-20] MEDS: IBUPROFEN 600 MG TABLET PO (09:03)
[2020-11-20] MEDS: BENZOCAINE 20% AER SPR (*SP) 56 GM CAN 1 SPRAY TOPICAL (09:03)
[2020-11-20] MEDS: DOCUSATE SODIUM 100 MG CAPSULE PO (09:03)
--- NOTE | 2020-11-20 09:15 | PC.NURSE ---
Consult with pt., mother reports she continues to put to breast each feeding. Infant continues with sleepiness and minimal suckling. Mother feels has a few bursts thru out the feeding than are steady with rhythmical draws. Mother will supplement after each feeding and then pumps. Mother is pumping without difficulties or discomfort. Mother is concerned with small amounts of colostrum at this time. Assured mother this is normal at this time and milk should transition in within a few days. Requested mother call out next feeding for observation.
--- NOTE | 2020-11-20 15:16 | PC.NURSE ---
Self care discharge instructions given. Mother verbalized understanding. No questions voiced. Very pleasant and cooperative.
== END 2020-11-20 17:30 | disposition home or self-care (01) | DRG 807 ==
LOC: ANHLDR 11-18 18:21 → ANHOB2 11-20 15:38 → ANHLDR 11-23 15:20 → ANHOB2 11-23 15:20 → ANHOBPP 11-23 15:20
PROVIDERS: Admitting Provider Obstetrics & Gynecology; Visit Provider Student in an Organized Health Care Education/Training Program
DX: O13.4 Gestational [pregnancy-induced] hypertension without significant proteinuria, complicating childbirth (principal); Z37.0 Single live birth; Z3A.38 38 weeks gestation of pregnancy; O36.8330 Maternal care for abnormalities of the fetal heart rate or rhythm, third trimester, not applicable or unspecified; O70.1 Second degree perineal laceration during delivery; O69.81X0 Labor and delivery complicated by cord around neck, without compression, not applicable or unspecified; O77.0 Labor and delivery complicated by meconium in amniotic fluid; O99.214 Obesity complicating childbirth; E66.9 Obesity, unspecified
CPT/HCPCS: 36415; 80053; 84550; 85014; 85018; 85025; 86592; 86850; 86900; 86901; 88307; A9270; J0131; J0290; J2405; J2590; J2795; J3010; J7030; J7120

== ENCOUNTER 2020-11-26 12:02 | Outpatient (CLI) | payer BC, OTHER, SELFPAY ==
[2020-11-26 12:54] VITALS: BP 143/97; PULSE 89; RESP 18; TEMP 37.2; O2SAT 99
[2020-11-26 13:02] VITALS: BP 145/99; PULSE 86; O2SAT 98
--- NOTE | 2020-11-26 13:05 | PC.NURSE ---
Pt placed in stirrups and perineum examined. Pt has tenderness where there appears to be a fold in her skin right below a stitch. No swelling. No hemorrhoids. No evidence of a hematoma. Scant rubra. Pt has been at [facility] with her daughter who is in the NICU since being discharged from the hospital. Pt states she hasn't been even going home to sleep. She spends most of her time standing at her daughters bedside or sitting in a hard chair. Pt is allergic to Witch Sonia but has been using her jose-bottle and Dermoplast spray. Pt states she hasn't been laying down at [facility], but the chair would pull out for her to sleep and rest on.
[2020-11-26 13:15] VITALS: BP 127/85; PULSE 90; O2SAT 99
[2020-11-26 13:30] VITALS: BP 127/88; PULSE 78
--- NOTE | 2020-11-26 13:38 | PC.NURSE ---
Dr. Disla was also informed that pt was induced at 38 wks for hypertension in . Reviewed her BP's from before she went home.
--- NOTE | 2020-11-26 13:38 | PC.NURSE ---
Dr. Disla (covering for Dr. Heaton) returned page and informed perineum looks fine- no evidence of swelling, infection, or hematoma. Informed pt hasn't been home to sleep since leaving the hospital- she has been staying with her baby girl who is in the NICU at [facility]. Informed of BP's, denies headache, visual disturbance, bilateral upper abdominal discomfort, no edema, and brisk reflexes but no clonus. To discharge pt to home with encouragement to try to get some rest, ice packs, and sitz bath for perineal discomfort.
[2020-11-26 13:45] VITALS: BP 122/83; PULSE 73
--- NOTE | 2020-11-26 13:45 | PC.NURSE ---
Showed pt how to make an ice pack out of a baby diaper and ice pack applied. Positioned pt on her right side with pillow between legs. Remaining diapers given to pt. Discussed with pt how she has to take some time to take care of herself. Encouraged to go home from hospital for some sleep and alternate with if she doesn't want to leave baby without one of them. Discussed that if she doesn't get some rest now, while there is a nurse to care for her baby, she could get worse with her BP's and be too exhausted when she does get to bring her daughter home. Instructed to spend time laying down while at hospital and not just standing and sitting in the hard chair. Instructed on how to do a sitz bath at home after showering. Instructed that she can take Tylenol for discomfort. Pt hasn't been taking anything. Encouraged to rest for awhile.
--- NOTE | 2020-11-26 14:30 | PC.NURSE ---
Pt feeling much better with the ice pack and rest. Plans to go home and get something to eat and rest for a few hours. Reviewed warning signs of preeclampsia with pt. Discussed that preeclampsia can develop up to 6 weeks after delivery and that it is important for her to get more rest and take care of herself for her to be able to care for baby. Pt still has her preeclampsia handout from discharge at home.
== END 2020-11-26 14:30 | disposition home or self-care (01) ==
LOC: ANHOBOP 12:07 → ANHLDR 12:07
PROVIDERS: Visit Provider Obstetrics & Gynecology
DX: R10.2 Pelvic and perineal pain (principal)
CPT/HCPCS: 99199

== ENCOUNTER 2020-12-08 12:28 | Outpatient (RCR) | payer BC, SELFPAY ==
--- NOTE | 2020-12-08 14:01 | PC.NURSE ---
IN 1000 OUT 1045 HISTORY: Pt. delivered at [facility] at 39 weeks. had complications after delivery, of low blood sugars and was transferred for possible sepsis. was in the NICU for 11 days. Mother had no complications after delivery. Infant is now 21 days old. appears to be well cared for. has been seen by [facility] as scheduled. last seen by [facility] on 12/07/2020. Mother reports: Mother has pumped and bottle fed due to low blood sugars and sepsis. is not accustom to bottle feeding and mother wishes to put infant to breast. Mother will attempt a few times each day, infant is resistant crying and arching away from breast. Mother then bottle feeds EBM of 90-100 per feeding. Infant will eagerly nipple. Mother pumps on feeding schedule, pumping 80-100 mls per session. Currently at 8 wets per day and 3 yellow seedy stools per day. Mother wishes: Infant to breastfeed for less bottle feeding and pumping. OBSERVATION: weight: 5#12 Discharge weight: 5#8 Last Weight: 7#1 Tongue is able to move freely past gum ridge, both lips flange easily. Mother has everted nipples with skin intact no redness, blisters, scabbing or abrasions noted. Suggested mother initiate let down to entice infant to latch. Assisted with infant to breast. Reviewed positioning/alignment in cross cradle, holding breast U hold and guided asymmetrical latch on. was fussy and made a few attempts before arching and crying pushing away from breast. Attempts made to self express milk into 's mouth to entice to latch without success. Offered and explained a nipple shield. Discussed nipple shield precautions and possible complications. Instructions given on application and cleaning of shield. Patient able to return demonstration on proper application of shield. Discussed the need for regular pumping if continues to nurse with the shield, until is able to empty breast and gain weight. Patient verbalizes understanding. Mother is willing to attempt with shield. With shield in place, infant was at first resistant to latch, within a few attempts latched correctly. Demonstrated breast compressions to keep milk flowing and infant nursing. Infant nursed eagerly, with steady draws and frequent swallowing noted. Reviewed signs of a correct latch, effective nursing and suck swallow ratio. Infant was able to maintain latch without discomfort to mother. Weaning techniques reviewed. PLAN: Mother will put infant to breast each feeding using nipple shield. Suggested mother nurse one breast and continue to bottle feed and pump the next several feedings. Once is more eager and latching without resistance mother will breastfeed both breasts each feeding. If infant is satisfied and maintaining output, mother can discontinue supplementation once infant is satisfied at breast and is gaining weight without supplementation after . Advised to continue to pump after feedings if mother has fullness and is uncomfortable. Mother will call with further questions or concerns. Follow up phone call scheduled for 12/10 .
== END 2021-01-19 13:27 | disposition home or self-care (01) ==
LOC: ANHOBOP 12:28
PROVIDERS: Visit Provider Obstetrics & Gynecology
DX: Z39.1 Encounter for care and examination of lactating mother (principal)
CPT/HCPCS: 99212; G0463